=== PATIENT | male | born 1975 | race Caucasian/White ===

== ENCOUNTER → 2019-03-09 10:17 | Outpatient (CLI) | payer BC, SELFPAY ==
[2019-03-09 10:47] LABS: Basophils # 0.1 K/mm3 (0-0.2); Basophils % 1.4 % (0.1-2.0); Eosinophils # 0.2 K/mm3 (0.0-0.4); Eosinophils % 3.5 % (0.1-12.0); Hematocrit 48.4 % (42.0-52.0); Hemoglobin 14.7 g/dL (14.1-18.0); Lymphocytes # 2.5 K/mm3 (0.7-4.5); Mean Corpuscular HGB Conc 30.4 g/dL (31.8-35.4); Mean Corpuscular Hemoglobin 30.3 pg (27.0-31.2); Mean Corpuscular Volume 99.5 fl (80-94); Mean Platelet Volume 6.5 fl (7.4-10.4); Monocytes # 0.5 K/mm3 (0.1-1.0); Monocytes % 7.2 % (1.7-9.3); Neutrophils # 3.2 K/mm3 (1.8-7.8); Platelet Count 421 K/mm3 (142-424); Red Blood Count 4.86 M/mm3 (4.60-6.20); Red Cell Distribution Width 13.3 % (11.5-17.5); White Blood Count 6.5 K/mm3 (4.8-10.8)
[2019-03-09 13:04] LABS: Alanine Aminotransferase 38 U/L (12-78); Albumin Level 4.2 gm/dL (3.4-5.0); Albumin/Globulin Ratio 1.4 (1.1-1.8); Alkaline Phosphatase 63 U/L (46-116); Anion Gap 12.2 mEq/L (5-15); Aspartate Amino Transferase 22 U/L (15-37); Bilirubin,Total 0.6 mg/dL (0.2-1.0); Blood Urea Nitrogen 15 mg/dL (7-18); Calcium 9.5 mg/dL (8.5-10.1); Carbon Dioxide 30 mmol/L (21.0-32.0); Chloride 104 mmol/L (98-107); Chol/HDL Ratio 3.3 (1-3.5); Cholesterol 234 mg/dL (140-200); Creatinine,Serum 1.32 mg/dL (0.70-1.30); Estimated Glomerular Filt Rate 59 ml/min (>60); GFR (African American) 71 ML/MIN (>60); Globulin 2.9 gm/dl (1.3-3.2); Glucose 93 mg/dL (74-106); HDL Cholesterol 72 mg/dL (27-67); LDL Cholesterol 148 mg/dL (0-130); Potassium 5.2 mmoL/L (3.5-5.1); Sodium 141 mmol/L (136-145); Total Protein,Serum 7.1 gm/dL (6.4-8.2); Triglycerides 72 mg/dL (30-200); VLDL Cholesterol 14 mg/dL (0-40)
== END ==
PROVIDERS: Visit Provider Family Medicine
DX: Z00.00 Encounter for general adult medical examination without abnormal findings (principal)
CPT/HCPCS: 36415; 80053; 80061; 85025

== ENCOUNTER → 2021-02-14 09:03 | Outpatient (CLI) | payer BC, SELFPAY ==
--- NOTE | 2021-02-14 09:08 | XR_ITS ---
PROCEDURE: XR LUMBAR SPINE MIN 4V CLINICAL INDICATION: ACUTE BILATERAL LOW BACK PAIN W/O SCIATICA COMPARISON: No exams were available for comparison FINDINGS: No fracture or dislocation. No lytic or blastic change. There is normal mineralization. There is minimal lumbar curvature convex left. There is mild degenerative disc disease at L3-L4 and L4-5. There is minimal retrolisthesis of L4 4 mm. The SI joints have an unremarkable appearance. IMPRESSION: Degenerative changes as described above Dictated by: Ever Meneses MD 02/14/2021 14:41 Ever Meneses MD in OV 02/14/2021 14:41
== END ==
PROVIDERS: PCP Family Medicine; Visit Provider Family Medicine
DX: M54.5 Low back pain (principal)
CPT/HCPCS: 72110

== ENCOUNTER → 2021-06-15 16:19 | Outpatient (CLI) | payer BC, SELFPAY | PROVIDERS: PCP Family Medicine; Visit Provider Nurse Practitioner | DX: Z20.822 Contact with and (suspected) exposure to COVID-19 (principal) | CPT/HCPCS: C9803; U0003; U0005 ==

== ENCOUNTER → 2022-07-05 07:39 | Outpatient (CLI) | payer SELFPAY ==
--- NOTE | 2022-07-05 07:48 | CT_ITS ---
FINAL REPORT TECHNIQUE: Thin section axial images were obtained through the heart and coronary arteries per CT coronary calcium score protocol. This study was performed with techniques to keep radiation doses as low as reasonably achievable (ALARA). Individualized dose reduction techniques using automated exposure control or adjustment of mA and/or kV according to the patient's size were employed. CLINICAL HISTORY: SCREENING. family hx of CAD FINDINGS: On the axial images, no calcified plaque is identified. This gives a coronary artery calcium score of 0 based on the Agatston scale. This coronary calcium score places the patient within the 0 percentile based on age and gender. The heart is normal in size. There is no pleural or pericardial effusion. Limited evaluation of the lungs reveal no suspicious nodule. There are calcified granulomas in the lungs. IMPRESSION: Coronary artery calcium score of 0 places patient in the 0 percentile. Reviewed, Interpreted and Dictated by Apolinar Daley III, MD Transcribed by Anette Back Authenticated and [facility]
== END ==
PROVIDERS: PCP Family Medicine; Visit Provider Family Medicine
DX: Z13.6 Encounter for screening for cardiovascular disorders (principal)
CPT/HCPCS: 75571

== ENCOUNTER → 2022-11-28 07:44 | Outpatient (CLI) | payer BC, SELFPAY ==
--- NOTE | 2022-11-28 07:44 | CT_ITS ---
FINAL REPORT CLINICAL HISTORY: abdominal pain FINDINGS: CT OF THE ABDOMEN AND PELVIS WITH CONTRAST Axial CT images of the abdomen and pelvis were obtained after the administration of IV contrast. Coronal and sagittal reformatted images were also obtained and reviewed. This study was performed with techniques to keep radiation doses as low as reasonably achievable (ALARA). Individualized dose reduction techniques using automated exposure control or adjustment of mA and/or kV according to the patient's size were employed. Abdomen: The lung bases are clear. The heart is normal in size. The liver has an unremarkable appearance, without evidence of mass or biliary ductal dilatation. There is mild nonspecific gallbladder wall thickening. The spleen is unremarkable. No adrenal mass is present. The pancreas has an unremarkable appearance. The kidneys are normal, without evidence of mass or hydronephrosis. The aorta is normal in caliber. There is no free fluid or adenopathy. No mass or abnormal fluid collection is seen. Pelvis: The appendix is not well-visualized, and no secondary signs of appendicitis are visualized. The urinary bladder is unremarkable. No inflammatory process is seen. There is no evidence of mass or adenopathy. There is no evidence of bowel obstruction. There are small bilateral inguinal hernias that are fat containing. IMPRESSION: No evidence of acute intra-abdominal process. Mild nonspecific thickening of the gallbladder wall. Reviewed, Interpreted and Dictated by Apolinar Daley III, MD Transcribed by Kendra Park Authenticated and . [facility]
== END ==
PROVIDERS: PCP Family Medicine; Visit Provider Surgery
DX: R10.9 Unspecified abdominal pain (principal)
CPT/HCPCS: 74177; Q9967

== ENCOUNTER → 2022-12-24 10:58 | Outpatient (CLI) | payer BC, SELFPAY ==
[2022-12-24 11:01] LABS: Microscopic, Urine URINE MICROSCOPIC (MICROSCOPIC)
[2022-12-24 11:39] LABS: Basophils # 0.1 K/mm3 (0-0.2); Basophils % 1.3 % (0.1-2.0); Eosinophils # 0.1 K/mm3 (0.0-0.4); Eosinophils % 1.5 % (0.1-12.0); Hemoglobin 14.4 g/dL (14.1-18.0); Lymphocytes % 36.3 % (10-50); Mean Corpuscular HGB Conc 32.1 g/dL (31.8-35.4); Mean Corpuscular Hemoglobin 30.9 pg (27.0-31.2); Mean Corpuscular Volume 96.5 fl (80-94); Mean Platelet Volume 7.6 fl (7.4-10.4); Monocytes # 0.4 K/mm3 (0.1-1.0); Monocytes % 7.1 % (1.7-9.3); Neutrophils % 53.8 % (37.0-80.0); Platelet Count 410 K/mm3 (142-424); Red Blood Count 4.67 M/mm3 (4.60-6.20); Red Cell Distribution Width 12.8 % (11.5-17.5); White Blood Count 5.6 K/mm3 (4.8-10.8)
[2022-12-24 12:43] LABS: Chloride 102 mmol/L (98-107)
[2022-12-24 12:44] LABS: Potassium 4.7 mmoL/L (3.5-5.1); Sodium 140 mmol/L (136-145)
[2022-12-24 12:47] LABS: Anion Gap 13.7 mEq/L (5-15); Blood Urea Nitrogen 19 mg/dl (9-20); Calcium 9.8 mg/dl (8.4-10.2); Carbon Dioxide 29 mmol/L (22.0-30.0); Estimated Glomerular Filt Rate 65 ml/min (>60); GFR (African American) 79 ML/MIN (>60); Glucose 93 mg/dl (74-100)
[2022-12-24 13:03] LABS: Appearance,Urine CLEAR (Clear); Bilirubin,Urine Negative (Negative); Blood, Urine Negative (Negative); Color,Urine YELLOW (Yellow); Glucose,Urine (UA) Negative (Negative); Ketones,Urine Negative (Negative); Leukocyte Esterase,Urine Negative (Negative); Nitrate,Urine Negative (Negative); PH,Urine 5.5 (5.0-8.5); Protein,Urine Negative (Negative); Urobilinogen,Urine 0.2 EU/dl (0.2)
[2022-12-24 13:15] LABS: Bacteria,Urine Trace /lpf; Squamous Epithelial Cell,Urine Occasional #/hpf (0-5)
== END ==
PROVIDERS: PCP Family Medicine; Visit Provider Surgery
DX: Z01.812 Encounter for preprocedural laboratory examination (principal); K43.9 Ventral hernia without obstruction or gangrene
CPT/HCPCS: 36415; 80048; 81001; 85025

== ENCOUNTER 2022-12-31 07:56 | Day surgery (SDC) | payer BC, SELFPAY ==
[2022-12-27 10:30] VITALS: BMI 27.3
[2022-12-31] VITALS (12 sets, daily range): BP systolic 107–149; BP diastolic 71–94; PULSE 69–95; RESP 16–18; TEMP 36.1–43; O2SAT 94–98
--- NOTE | 2022-12-31 08:34 | EXP.ANES.CKL ---
[facility] Disclaimer: The information contained in this section may have been updated after the patient was seen, as this information can be updated by other users. Medical History History of fracture of leg Surgical History History of ankle surgery History of eye surgery History of tonsillectomy History of wisdom tooth extraction Family History Other No significant family history Social History Smoking Status: Never smoker alcohol intake: current substance use type: denies use current occupational status: employed Travel in the last 8 weeks: Inside the [place] household members: family housing: house [facility] Anesthesia Checklist Patient Identification Patient Identification: Arm Band Structural Data Admitted From: Home Planned Operative Procedure/s: Laparoscopic Ventral Hernia Repair Consent for Planned Operative Procedure(s) Verified: Yes Verified Documents: Surgical Consent and History and Physical NPO Status Verified Time NPO: 00:00 Additional verifications Anesthesia Reactions: No Hx Blood Transfusions: No Blood Transfusion Reaction: No Airway Assessment C-Spine Mobility Assessed: Yes TMJ Mobility Assessed: Yes Dentition: Good Dentition Neurological Assessment Level of Consciousness: Awake and Alert Anesthesia Plan Anesthesia Risk discussed: Yes Anesthesia Plan: Verified ASA Class: I Anesthesia Type: General
--- NOTE | 2022-12-31 11:50 | EXP.OP.NOTE ---
Date of procedure: 12/31/22 Pre-op Diagnosis:: Ventral hernia Post-op Diagnosis:: Same Procedure performed:: Laparoscopic repair of epigastric ventral hernia with placement of large sized Bard Ventralex mesh (8 cm) Surgeon:: Apolinar Brown MD Anesthesia: SUYAPA Estimated blood loss (mL): 10 Clinical Note:: Patient presents for epigastric ventral hernia repair. 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 He actually states that for several decades he has had a an occasional bulge in the epigastrium. He states that about once or twice a year it protrudes and he has to push it back. Denies any significant pain. He states that he notices it more depending on his diet and if he drinks carbonated beverages or has foods which cause abdominal bloating. He states that it is seemingly protruding more frequently. When he was seen in the office that he had a clinical epigastric ventral hernia of uncertain size and nature. I felt that most likely the best plan of action would be repair laparoscopically directed. He did wish to pursue repair. To determine the size and nature as well as hernia contents ordered a CT scan. By report there is no mention of the ventral hernia by the radiologist read. However, with the evaluation of the images there is a mid epigastric ventral hernia containing fat with a defect which appears to measure about 2 cm. There is note of a small fat-containing inguinal hernia. Plan was made to proceed with laparoscopically directed hernia repair likely with medium Ventralex. It is felt that the inguinal hernia was incidental at this time. Operative findings:: He had an epigastric ventral hernia with herniated preperitoneal contents of the falciform ligament. A couple centimeters inferior to this there appeared to be a tiny defect measuring about 3 mm or less. Operative note:: Patient was taken the operating room. He was positioned in supine position. General anesthesia was induced via endotracheal tube. Abdomen was prepped and draped in the standard surgical fashion. Through left subcostal 5 mm incision 5 mm optical trocar was inserted. CO2 pneumoperitoneum was achieved. Laparoscopic surveillance was carried out. There appeared to be possibly hernia defect obscured by the falciform ligament. Given the fact that this appeared to be extraperitoneal a couple of additional trocars were inserted in the left abdomen. Peritoneum was incised and the falciform ligament was divided. Dissection was carried out identifying a defect in the epigastrium with actually a significant amount of herniated preperitoneal fat which was able to be reduced. Defect measured 2 to 2-1/2 cm. The preperitoneal dissection was carried out circumferentially around the defect using blunt dissection with some use of SUSI ultrasonic harmonic soheila to allow for adequate placement of mesh. The preperitoneal fatty tissues were then incised from the surrounding peritoneum. There was noted to be a very tiny 2 or 3 mm apparent possible defect a couple centimeters inferior to the symptomatic defect. Through the defect a 12 mm trocar was inserted. The previously excised fatty tissues which were herniated and fatty tissues from the excised preperitoneal area were placed within an Endo Catch retrieval device and removed from the peritoneal cavity via the umbilical trocar site. Given the nature of the hernia defect as well as this tiny defect inferior to this a large sized Bard Ventralex mesh measuring 8 cm circumferential diameter was inserted through the 12 mm trocar site. Trocar was then removed. The tails of the mesh were elevated positioning the mesh over the hernia defect with good overlap. Mesh was secured around its periphery with the Endo anchor device. Repair appeared adequate. The peritoneum which had been dissected back from the fascia was then partially closed ovgilles
--- NOTE | 2022-12-31 12:04 | EXP.ANES.I ---
[facility] Anesthesia Record Part I Anesthesia Record I Intake, IV Amount: 900 Estimated blood loss (mL): 15 Urine output (mL): 0 Blood Products used (#): none Blood Pressure: 149/92 SaO2: 96 Pulse Rate: 81 Respiratory Rate: 16 Temperature: 97.6 F Patient is:: Drowsy and Stable Stable to PACU at:: 12:00
--- NOTE | 2023-01-02 07:47 | P.PNANES_ITS ---
[facility] Anesthesia Record Part II Anesthesia Record Part II Discharge Time: 12:40 Destination: Surgical Day Care (OP Surgery) PACU nurse assessment reviewed?: Yes Patient Condition:: Good Anesthesia Complications:: None Swallowing reflex intact?: Yes Cyanosis?: No Blood Pressure: 122/74 Pulse Rate: 80 Temperature: 97.3 F Mental Status: Alert & Oriented Pain level:: 4 Nausea and/or vomitting:: None Intake, IV Amount: 0
[2023-01-02 07:48] VITALS: BP 122/74; PULSE 80; TEMP 36.3
== END 2022-12-31 13:30 | disposition home or self-care (01) ==
PROVIDERS: PCP Family Medicine; Visit Provider Surgery
PROC: 0WQF4ZZ Repair Abdominal Wall, Percutaneous Endoscopic Approach (ICD-10-PCS; CPT 49591; principal; 2022-12-31 09:45)
DX: K43.9 Ventral hernia without obstruction or gangrene (principal)
CPT/HCPCS: 49591; 96374; C1781; J2405

== ENCOUNTER → 2023-03-14 06:47 | Outpatient (CLI) | payer BC, SELFPAY ==
--- NOTE | 2023-03-14 06:56 | CT_ITS ---
FINAL REPORT TECHNIQUE: Thin section axial CT images of the facial bones and sinuses were obtained without contrast. Coronal reformatted images were also obtained.This study was performed with techniques to keep radiation doses as low as reasonably achievable, (ALARA). Individualized dose reduction techniques using automated exposure control or adjustment of mA and/or kV according to the patient''''s size were employed. CLINICAL HISTORY: Chronic Sinusitis FINDINGS: There is moderate to severe mucosal thickening of the left maxillary sinus. Soft tissue obstructs the left maxillary sinus ostium and infundibulum. There is mucosal thickening of the right sphenoid sinus. No fluid levels are identified. IMPRESSION: Sinusitis as above. Reviewed, Interpreted and Dictated by Apolinar Daley III, MD Transcribed by Anette Back Authenticated and [facility]
== END ==
PROVIDERS: PCP Family Medicine; Visit Provider Nurse Practitioner
DX: J32.9 Chronic sinusitis, unspecified (principal)
CPT/HCPCS: 70486

== ENCOUNTER → 2023-05-15 10:07 | Outpatient (CLI) | payer BC, SELFPAY ==
--- NOTE | 2023-05-15 10:42 | ECG_ITS ---
APPROVED REPORT Exam: Resting ECG HR:99 bpm ECG Measurements Heart Rate 99 AXES WV 157 P 19 QRSd 82 QRS 23 QT 334 T 26 QTc 390 Conclusion SINUS RHYTHM INDETERMINATE AXIS NORMAL ECG UNCONFIRMED REPORT Electronically signed by : Pedro Pablo Judge MD 05/15/2023 17:32:56
[2023-05-15 11:02] LABS: Basophils # 0.1 K/mm3 (0-0.2); Basophils % 1.4 % (0.1-2.0); Eosinophils # 0.2 K/mm3 (0.0-0.4); Eosinophils % 3.3 % (0.1-12.0); Hematocrit 45.1 % (42.0-52.0); Hemoglobin 15.3 g/dL (14.1-18.0); Lymphocytes # 2.3 K/mm3 (0.7-4.5); Lymphocytes % 36.3 % (10-50); Mean Corpuscular HGB Conc 33.8 g/dL (31.8-35.4); Mean Corpuscular Hemoglobin 32.7 pg (27.0-31.2); Mean Corpuscular Volume 96.7 fl (80-94); Mean Platelet Volume 7.2 fl (7.4-10.4); Monocytes # 0.4 K/mm3 (0.1-1.0); Monocytes % 6.4 % (1.7-9.3); Neutrophils # 3.4 K/mm3 (1.8-7.8); Neutrophils % 52.6 % (37.0-80.0); Platelet Count 368 K/mm3 (142-424); Red Blood Count 4.67 M/mm3 (4.60-6.20); Red Cell Distribution Width 12.7 % (11.5-17.5); White Blood Count 6.4 K/mm3 (4.8-10.8)
[2023-05-15 11:04] LABS: Chloride 100 mmol/L (98-107)
[2023-05-15 11:05] LABS: Potassium 4.3 mmoL/L (3.5-5.1); Sodium 138 mmol/L (136-145)
[2023-05-15 11:07] LABS: Alanine Aminotransferase 45 U/L (12-78); Alkaline Phosphatase 49 U/L (38-126); Anion Gap 12.3 mEq/L (5-15); Aspartate Amino Transferase 37 U/L (17-59); Bilirubin,Total 0.5 mg/dl (0.2-1.3); Blood Urea Nitrogen 21 mg/dl (9-20); Carbon Dioxide 30 mmol/L (22.0-30.0); Estimated Glomerular Filt Rate 65 ml/min (>60); GFR (African American) 78 ML/MIN (>60)
[2023-05-15 11:08] LABS: Albumin Level 4.8 g/dl (3.5-5.0); Calcium 8.9 mg/dl (8.4-10.2); Globulin 2.4 g/dL (1.3-3.2); Glucose 129 mg/dl (74-100); Total Protein,Serum 7.2 g/dl (6.3-8.2)
== END ==
PROVIDERS: PCP Family Medicine; Visit Provider Otolaryngology
DX: J32.9 Chronic sinusitis, unspecified (principal); J34.89 Other specified disorders of nose and nasal sinuses
CPT/HCPCS: 36415; 80053; 85025; 93005

== ENCOUNTER 2024-05-13 14:43 | Outpatient (CLI) | payer BC, SELFPAY ==
--- NOTE | 2024-05-13 14:45 | XR_ITS ---
FINAL REPORT CLINICAL HISTORY: pain FINDINGS: 2 views of the left forearm were obtained. There is no acute fracture or dislocation. The joints are intact. There are no soft tissue abnormalities. IMPRESSION: No acute process. Reviewed, Interpreted and Dictated by Apolinar Daley III, MD Transcribed by Cande Razo Authenticated and [facility]
--- OUTSIDE RECORDS SUMMARY | 2024-05-13 14:45 | XMS_ITS | Encounter Summary ---
Author Organization [facility] Address [address] [place] [address] Care Team Providers Care Actuarial Internship Name Role Phone Marcelo Adame MD Primary Care Provider Encounter Details Date Type Department Care Team (Late st Contact Info) Description 06/02/2015 6:09 AM EST - 06/02/2015 11:30 AM EST Hospital Encounter [facility] [address] [phone] She Lloyd MD [address] [place] [address] Discharge Disposition: Home or Self Care Social History Tobacco Use Types Packs/Day Years Used Date Smoking Tobacco: Never Assessed Sex and Gender Information Value Date Recorded Sex Assigned at Not on file Legal Sex Male 10:48 AM EST Gender Identity Not on file Sexual Orientation Not on file documented as of this encounter OR Notes * Op Note - Provider Not In System - 06/02/2015 12:00 AM EST [place] [id number] OPERATIVE REPORT PATIENT NAME: LOPEZ MARIA ROOM NUMBER: [id number] VISIT NUMBER: [id number] DATE OF : 1975 DATE OF OPERATION: 06/02/2015 SURGEON: She Lloyd MD BUREAU CHIEF: Daxa Ivy PA-C. Ms. Ivy was present for the entire procedure including prepping, draping, retraction, closure and dressing. ANESTHESIA: General with popliteal block for postop pain control. 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 OPERATIONS PERFORMED: 1. Extensive tenosynovectomy of peroneus longus and brevis. 2. Repair of longitudinal cystic degeneration in the peroneus brevis. INDICATIONS FOR PROCEDURE: The patient is an extremely pleasant, 40-year-old gentleman with a 16 month history of left ankle pain and swelling. He has a longitudinal cystic split in the peroneus brevis on his MRI and extensive tenosynovitis. There is a cystic change in the center of the peroneus brevis. I found this to be the case at the time of surgery. There was extensive tenosynovitis around both tendons. There were no splits in the longus. He does have a mild hindfoot varus but I did not feel that it was severe enough to consider osteotomy. He has had persistent problems with the tendon. The goal of surgery is to repair this and improve function. DESCRIPTION OF PROCEDURE: The patient was taken to the Operating Room where general anesthesia was induced without difficulty. He was given preoperative antibiotics. He was given a preoperative popliteal block with a catheter. He was carefully turned in the lateral position, left side up on the beanbag. An axillary roll was placed. Care was taken to keep all pressure off the down peroneal nerve. Padding was placed between a well-padded tourniquet on the thigh and the down leg. The left leg was then prepped and draped in the usual sterile fashion. The appropriate time-out was called. The leg was elevated, wrapped with an Esmarch, tourniquet inflated to 350 mmHg. Tourniquet time was 62 minutes. I then made a 15 cm curvilinear incision over the posterolateral aspect of the fibula. This was carried down through soft tissue bluntly. Neurovascular structures were carefully protected. Any hemostasis was obtained where needed during the case with electrocautery. The peroneal tendon sheath was visibly distended with fluid. I passed a small [place] through it and opened it. It was tagged for later reapproximation. He had extensive tenosynovitis throughout. Extensive debridement was carried out with a synovectomy rongeur. He had degeneration of the peroneal tubercle. I removed this and smoothed the area with rasp and rongeur. I evaluated the peroneus longus. Although it had a covering of tenosynovium that was inflamed there was no longitudinal splitting. I removed all the abnormal tissue. The peroneus brevis was found to have several central enlargements. These were opened. He had cystic change. All of the inflammatory tissue was removed. The tendon was d'brided back to a smooth even caliber. I also removed some of the muscle that was at the level of the peroneal retinaculum. When the tendon was all of the same caliber and the cystic change in the inflammatory tissue had been removed, the incision was irrigated copiously with antibiotic solution. The tendon was then repaired with a 2-0 Prolene in a baseball stitch fashion. Care was taken to bury the knots. This gave a nice smooth gliding surface to the tendon. The ankle was put through a range of motion and there was excellent movement of the tendon in the peroneal gutter. The incision was then again irrigated copiously with antibiotic solution. It was evaluated and there were no further areas of inflammatory tissue. The retinaculum was repaired with 2-0 FiberWire. This kept the tendons nicely in position. The incision was then closed with Monocryl and nylon. The leg was dressed sterilely and placed in a 3-sided splint with the ankle in mild plantarflexion to prevent any tension on the repair. Tourniquet was released. He was carefully turned supine, awakened, extubated, and transferred to the Recovery Room in stable condition. PLAN: Discharge home nonweightbearing. BLOOD LOSS: Less than 5 mL. COMPLICATIONS: None. SPECIMENS: None. She Lloyd MD* G/rxrjs Voice Rec. ID #[id number] Original Voice Rec. ID #[id number] Doc ID #[id number] Revision Count: 0 cc: She Lloyd MD* Mann Carroll MD* <start header> [place] [address] OPERATIVE REPORT PATIENT NAME: LOPEZ MARIA ROOM NUMBER: [id number] VISIT NUMBER: [id number] DATE OF : 1975 <end header> DO NOT TEXT EDIT THIS LINE :HAND STAMPER:[id number]: Authenticated and Edited by SHE LLOYD MD On 06/02/15 11:35:06 AM documented in this encounter Plan of Treatment Not on file documented as of this encounter Visit Diagnoses Not on filedocumented in this encounter Care Teams Actuarial Internship Relationship Specialty Start Date End Date Marcelo Adame MD [address] [facility] [address] [facility] [address] [place] [address] PCP - General 06/02/15 documented as of this encounter
--- OUTSIDE RECORDS SUMMARY | 2024-05-13 14:45 | XMS_ITS | Clinical Summary ---
Author Organization [facility] Address [address] [place] [address] Care Team Providers Care Advanced Practice Rn Name Role Phone Marcelo Adame MD Primary Care Provider + [phone] Social History Tobacco Use Types Packs/Day Years Used Date Smoking Tobacco: Never Assessed Abuse Screen Answer Date Recorded Unsafe at Home or Work/School Not on file Feels Threatened by Someone? Not on file 04/2023 Does Anyone Keep You from Co ntacting Others or Doint Things Outside the Home? Not on file 03/13/2023 Physical Sign of Abuse Present Not on file 1 Housing Stability Answer Date Recorded Current Living Arrangements Not on file 03/03 Potentially Unsafe Housing Conditions Not on candido e 03/13/2023 Family and Community Support Answer Marko e Recorded Help with Day-to-Day Activities Not on file 03/13/2023 Lonely or Isolated Not on file 03/13/2023 Employment Answer Date Recorded Do you want help finding or keeping work or a walter b? Not on file 03/13/2023 Disabilities Answer Date Recorded Concentrating, Remembering, or Making Decisions Difficulty Not on file 03/13/2023 Doing Errands Independently Difficulty Not on fi le 03/13/2023 Education Answer Date Recorded Help with school or training? Not on file Preferred Language Not on file 03/13/2023 Sex and Gender Information Value Date Recorded Sex Assigned at Not on file Legal Sex Male 10:48 AM EST Gender Identity Not on file Sexual Orientation Not on file Plan of Treatment Health Maintenance Due Date Last Done Comments ANNUAL PHYSICAL 1975 COLOGUARD 1975 COLON CANCER SCREENING 5 YEA R SIGMOIDOSCOPY 1975 COLONOSCOPY [address] SCREENING [address] COLONOGRAPHY 1975 FECAL OCCULT BLOOD TEST 1975 FIT Testing (1 year) 1975 HEPATITIS C SCREENING 1975 TDAP/TD VACCINES (1 - Tdap) 1994 INFLUENZA VACCINE 12/02/2023 COVID-19 Vaccine (1 - 2023-2 5 season) 2024 Pneumococcal Vaccine 0-64 Aged Out No longer eligible based on patient's age to complete this topic Care Teams Advanced Practice Rn Relationship Specialty Start Date End Date Marcelo Adame MD [address] [facility] [address] [facility] [address] [place] [address] PCP - General 06/02/15
== END 2024-05-13 23:59 | disposition home or self-care (01) ==
LOC: RAD 14:44
PROVIDERS: PCP Family Medicine; Visit Provider Physician Assistant
DX: M79.632 Pain in left forearm (principal)
CPT/HCPCS: 73090

== ENCOUNTER 2024-05-18 09:23 | Outpatient (CLI) | payer BC, SELFPAY ==
--- NOTE | 2024-05-18 09:23 | MR_ITS ---
FINAL REPORT TECHNIQUE: Multiplanar MR without contrast CLINICAL HISTORY: left elbow pain going down arm COMPARISON: None FINDINGS: MRI LEFT ELBOW: The marrow signal pattern is normal. Specifically, there is no evidence of bone contusion or fracture. A physiologic joint effusion is present. There is no osteochondral defect. Medial and lateral collateral ligaments are intact. Biceps and triceps tendons are unremarkable. Flexor tendons have a normal appearance. Extensor tendons are normal. IMPRESSION: Unremarkable MRI evaluation of the left elbow Reviewed, Interpreted and Dictated by Tian Hunt MD Transcribed by Kendra Park Authenticated and [facility]
--- NOTE | 2024-05-18 09:23 | MR_ITS ---
FINAL REPORT CLINICAL HISTORY: left elbow and lower arm pain COMPARISON: None FINDINGS: Multiplanar MR imaging of the left forearm was performed without contrast. There is no evidence of fracture or bone marrow edema. No bony mass is identified. Musculature is intact. No soft tissue mass or cyst is identified. No soft tissue inflammation is seen. IMPRESSION: No acute abnormality identified. Reviewed, Interpreted and Dictated by Tian Hunt MD Transcribed by Kendra Park Authenticated and [facility]
== END 2024-05-18 23:59 | disposition home or self-care (01) ==
LOC: RAD 09:23
PROVIDERS: PCP Family Medicine; Visit Provider Physician Assistant
DX: M25.522 Pain in left elbow (principal); S46.202A Unspecified injury of muscle, fascia and tendon of other parts of biceps, left arm, initial encounter
CPT/HCPCS: 73218; 73221

== ENCOUNTER 2024-08-03 09:58 | Day surgery (SDC) | payer BC, SELFPAY ==
[2024-08-03 10:26] VITALS: BP 127/88; PULSE 77; RESP 18; TEMP 36.5; O2SAT 95; BMI 28.3
[2024-08-03] MEDS: LACTATED RINGERS 1000ML 1,000 ML 50 ML IV (10:37)
--- NOTE | 2024-08-03 10:56 | EXP.ANES.CKL ---
[facility] Disclaimer: The information contained in this section may have been updated after the patient was seen, as this information can be updated by other users. Medical History (Updated 08/03/24 @ 10:32 by Mohini Lam RN) History of COVID-19 History of gastroesophageal reflux (GERD) Deviated nasal septum Hypertrophy of nasal turbinates History of fracture of leg Surgical History History of hernia repair History of eye surgery History of ankle surgery History of tonsillectomy History of wisdom tooth extraction Family History Other No significant family history Social History (Updated 08/03/24 @ 10:32 by Mohini Lam RN) Smoking Status: Never smoker alcohol intake: current substance use type: denies use current occupational status: employed Travel in the last 8 weeks: Inside the [facility] household members: family housing: house caffeine: Yes Have you lived/traveled outside US in past 30 days?: No Contact w/someone who lives/traveled outside US past 30 days?: No Exposure to someone with infectious disease in past 14 days?: No Do you have a fever (greater than 100.4 F or 38 C)?: No Have you tested positive for COVID-19: Yes Exposed to someone with COVID-19 in past 14 days?: No Do you have a sore throat?: No Do you have a cough?: No Do you have any weakness?: No Are you experiencing any nausea/vomitting?: No Do you have any diarrhea?: No Are you experiencing any unusual bleeding?: No Do you have any muscle aches/pain?: No Do you have any abdominal pain?: No Are you experiencing loss of taste or smell?: No [facility] Anesthesia Checklist Patient Identification Patient Identification: Arm Band Structural Data Admitted From: Home Planned Operative Procedure/s: Colonoscopy Consent for Planned Operative Procedure(s) Verified: Yes Verified Documents: Surgical Consent and History and Physical NPO Status Verified Time NPO: 00:00 Additional verifications Anesthesia Reactions: No Hx Blood Transfusions: No Blood Transfusion Reaction: No Airway Assessment Mallampati Score:: Class II C-Spine Mobility Assessed: Yes TMJ Mobility Assessed: Yes Dentition: Good Dentition Neurological Assessment Level of Consciousness: Awake, Alert and Appropriate Anesthesia Plan Anesthesia Risk discussed: Yes Anesthesia Plan: Verified ASA Class: II Anesthesia Type: MAC
--- NOTE | 2024-08-03 11:30 | P.HP_ITS ---
History of Present Illness *Admission Date: 08/03/24 *Reason for visit:: Screening for colon cancer *History of present illness: Mr. Maria is a 49-year-old gentleman who is here for initial screening colonoscopy. The examination is deemed medically necessary for screening colonoscopy. The patient has been seen, interviewed and examined prior to the procedure by both myself and the anesthesia provider. [facility] Disclaimer: The information contained in this section may have been updated after the patient was seen, as this information can be updated by other users. Medical History (Updated 08/03/24 @ 11:31 by Oscar Lewis II, MD) History of COVID-19 History of gastroesophageal reflux (GERD) Deviated nasal septum Hypertrophy of nasal turbinates History of fracture of leg Surgical History History of hernia repair History of eye surgery History of ankle surgery History of tonsillectomy History of wisdom tooth extraction Family History Other No significant family history Social History (Updated 08/03/24 @ 10:32 by Mohini Lam RN) Smoking Status: Never smoker alcohol intake: current substance use type: denies use current occupational status: employed Travel in the last 8 weeks: Inside the [place] household members: family housing: house caffeine: Yes Have you lived/traveled outside [place] in past 30 days?: No Contact w/someone who lives/traveled outside [place] past 30 days?: No Exposure to someone with infectious disease in past 14 days?: No Do you have a fever (greater than 100.4 F or 38 C)?: No Have you tested positive for COVID-19: Yes Exposed to someone with COVID-19 in past 14 days?: No Do you have a sore throat?: No Do you have a cough?: No Do you have any weakness?: No Are you experiencing any nausea/vomitting?: No Do you have any diarrhea?: No Are you experiencing any unusual bleeding?: No Do you have any muscle aches/pain?: No Do you have any abdominal pain?: No Are you experiencing loss of taste or smell?: No Other Medical History Have you received the Flu Vaccine for this season: Yes Have you received the Pneumonia Vaccine: No Review of Systems Review of Systems Review of systems (narrative): Negative *Cardiovascular Comments: Negative *Gastrointestinal Comments: Negative *Genitourinary Comments: Negative *Musculoskeletal Comments: Negative *Neurologic Comments: Negative Meds Home Medications and Allergies Home Medications ?Medication ?Instructions ?Recorded ?Confirmed ?Type cetirizine 10 mg tablet (Zyrtec) 10 mg PO ONCE allergies 07/12/17 08/03/24 History rosuvastatin 10 mg tablet 10 mg PO DAILY Cholesterol 11/27/22 08/03/24 History sodium,potassium,mag sulfates 17.5 See Rx Instructions PO .COMPLEX 07/20/24 08/03/24 Rx gram-3.13 gram-1.6 gram oral soln #354 mL (Suprep Bowel Prep Kit) fluticasone propionate 50 1 spray intranasal DAILY 08/03/24 08/03/24 History mcg/actuation nasal spray,suspension New Prescriptions to Start Prescriptions: Allergies Allergy/AdvReac Type Severity Reaction Status Date / Time No Known Allergies Allergy Verified 08/03/24 10:28 Exam Data for Last 24 hours Vital signs and Labs for Last 24 Hours: Temp Pulse Resp BP Pulse Ox O2 Del Method 97.7 F 77 18 127/88 95 Room Air 08/03/24 10:26 08/03/24 10:26 08/03/24 10:26 08/03/24 10:26 08/03/24 10:26 08/03/24 10:26 I & O for Last 24 hours: Intake & Output 07/31/24 08/01/24 08/02/24 08/03/24 23:59 23:59 23:59 23:59 Weight 187 lb 0.008 oz *Routine HEENT Exam Head: Present normocephalic Eye: Present EOMI and PERRL ENT: Present mucous membranes moist *Routine Neck Exam Neck: Present supple *Routine Respiratory Exam Respiratory: Present CTA bilaterally *Routine Cardiovascular Exam Cardiovascular: Present RRR *Routine Abdominal Exam Abdominal: Present soft and normoactive bowel sounds; Absent tenderness *Routine Rectal Exam Rectal:: deferred *Routine Genitalia Exam Genitalia:: deferred *Routine Extremities Exam Extremities: Absent cyanosis, clubbing or edema *Routine Skin Exam Skin: Present warm; Absent rash *Routine Neurological Exam Neurological: Present alert and oriented X3 Assessment and Plan *Assessment and plan (1) Screening for colon cancer: Status: Acute Category: Medical Code(s): Z12.11 - Encounter for screening for malignant neoplasm of colon Plan A/P: 1. Screening for colon cancer is the preprocedural diagnosis. The patient will be anesthetized/sedated using MAC sedation. The patient has been seen and examined. Cardiac and lung assessment prior to the examination is stable. Proceed with planned screening colonoscopy
[2024-08-03 11:38] VITALS: O2SAT 100
--- NOTE | 2024-08-03 11:46 | [facility].PROCNOTE ---
[facility] Procedure Note Date: 08/03/24 Time: 12:02 Procedure Note:: Colonoscopy Procedure Report: Colonoscopy Endoscopist: Oscar Lewis II, MD Referring physician: Marcelo Adame MD Date of Procedure: August 03, 2024 Equipment: Olympus 190 variable stiffness pediatric colonoscope Sedation: MAC sedation Indication: Mr. Maria is a 49-year-old gentleman who is here for initial screening colonoscopy. He reports no abdominal pain, weight loss, change in his bowel habits or rectal bleeding. He reports no family history of colon cancer. His son has Crohn's disease. Procedure: Prior to the procedure, a history and physical exam was performed, and patient's medications and allergies were reviewed. The risks, benefits and alternatives of the sedation and procedure were discussed with the patient. All questions were answered and informed consent was obtained. The patient was brought to the procedure room. Patient identification and proposed procedure were verified by the physician and the nurse. The patient was placed in a left lateral decubitus position and the scope was passed under direct vision. Throughout the procedure, the patient's blood pressure, pulse, and oxygen saturations were monitored continuously. The colonoscopy was accomplished without difficulty. The patient tolerated the procedure well. Findings: On digital rectal examination there was normal rectal tone. There were no external hemorrhoids. The prostate was 2+, smooth, soft, symmetric without nodules. The colonoscope was introduced through the anal canal to the rectum and advanced to the cecum. The ileocecal valve and appendiceal orifice were identified. The scope was advanced a short distance into the ileum which appeared grossly normal. The scope was then withdrawn into the colon. The cecum, ascending, transverse, descending, sigmoid and rectum were grossly normal. There were no mucosal abnormalities identified. Upon retroflexion within the rectum there were grade 1-2 internal hemorrhoids. The preparation was excellent throughout with Hurley Preparation Score of 9. The cecal time was 11 minutes. Impression: 1. Normal colonoscopy with intubation of the terminal ileum 2. Grade 1-2 internal hemorrhoids Plan: The patient will not require surveillance colonoscopy again for 10 years by ACS guidelines. I would encourage psyllium fiber supplementation on a maintenance basis.
[2024-08-03 12:06] VITALS: BP 92/64; PULSE 77; RESP 18; TEMP 36.6; O2SAT 91
[2024-08-03 12:14] VITALS: BP 100/61; PULSE 65; RESP 18; O2SAT 97
[2024-08-03 12:26] VITALS: BP 105/64; PULSE 69; RESP 18; O2SAT 94
[2024-08-03 12:36] VITALS: BP 107/67; PULSE 65; RESP 16; O2SAT 98
== END 2024-08-03 12:38 | disposition home or self-care (01) ==
PROVIDERS: PCP Family Medicine; Visit Provider Internal Medicine Gastroenterology
PROC: 0DJD8ZZ Inspection of Lower Intestinal Tract, Via Natural or Artificial Opening Endoscopic (ICD-10-PCS; CPT 45378; principal; 2024-08-03 11:30)
DX: K64.8 Other hemorrhoids (principal); Z12.11 Encounter for screening for malignant neoplasm of colon
CPT/HCPCS: 45378; J7120